=== PATIENT | female | born 1970 | race Caucasian/White ===

== ENCOUNTER 2016-07-23 01:07 | Emergency (ER) | payer BC, OTHER ==
[~2016-07-23] VITALS: Ht 165.1 cm; Wt 126.7 kg
[2016-07-23] MEDS ORDERED: AMLO5TAB2 PO (01:21)
[2016-07-23] MEDS ORDERED: METF500T PO (01:21)
[2016-07-23 01:22] VITALS: BP 145/89; PULSE 92; RESP 18; TEMP 97.9; O2SAT 100
--- NOTE | 2016-07-23 01:38 | PD ---
HPI Chief Complaint: Foreign Body Time Seen by Provider: 01:33 Travel History International Travel<30 days: No Contact w/Intl Traveler<30days: No Traveled to known affect area: No History of Present Illness HPI The patient is a 45-year-old female that was using a Q-tip in her right ear to scratch and itch there and the cotton part of the Q-tip broke off. This happened about 0030 this morning. PFSH Past Medical History Cardiovascular Problems: Yes Diabetes: Yes Patient Takes Glucophage: Yes Diminished Hearing: No Hypertension: Yes Tetanus Vaccination: Unknown Influenza Vaccination: No ?: Not LMP: 07/14/16 Social History Alcohol Use: No Tobacco Use: No Substance Use: No Allergies-Medications (Allergen,Severity, Reaction): Coded Allergies: Codeine (Verified Allergy, Mild, Nausea/Vomiting, 07/23/16) Reported Meds & Prescriptions Reported Meds & Active Scripts Active Reported Metformin (Metformin HCl) 500 Mg Tab 500 Mg PO DAILY With a meal Amlodipine (Amlodipine Besylate) 5 Mg Tab 5 Mg PO DAILY Review of Systems Except as stated in HPI: all other systems reviewed are Neg Physical Exam Narrative GENERAL: Well-nourished, well-developed patient in no apparent distress. The vital signs show a pulse of 92, blood pressure 145/89 but otherwise normal. SKIN: Warm and dry. HEAD: Normocephalic. EYES: No scleral icterus. No injection or drainage. NECK: Supple, trachea midline. No JVD or lymphadenopathy. CARDIOVASCULAR: Regular rate and rhythm without murmurs, gallops, or rubs. RESPIRATORY: Breath sounds equal bilaterally. No accessory muscle use. GASTROINTESTINAL: Abdomen soft, non-tender, nondistended. MUSCULOSKELETAL: No cyanosis, or edema. BACK: Nontender without obvious deformity. No CVA tenderness. ENT: The right canal is obscured by a cotton portion of the Q-tip which is deep in the right ear canal. Data Data Last Documented VS Vital Signs Date Time Temp Pulse Resp B/P Pulse Ox O2 Delivery O2 Flow Rate FiO2 07/23/16 01:25 18 07/23/16 01:22 97.9 92 145/89 100 MDM Medical Decision Making Medical Screen Exam Complete: Yes Emergency Medical Condition: Yes Medical Record Reviewed: Yes Differential Diagnosis Foreign body right ear canal, otitis externa, otitis media Narrative Course There is no evidence for an otitis externa or otitis media. There was a foreign body in the right ear canal that was removed without problem. Procedures Procedure Narrative Under direct visualization a cotton ball that broke off from a Q-tip was removed from the right ear canal. The patient tolerated the procedure well. Visualization of the tympanic membrane and the canal revealed no otitis externa or otitis media. Diagnosis Primary Impression: Acute foreign body of right ear canal Additional Instructions: It is good idea not to use Q-tips in the ear canal. Certainly do not use this brand of Q-tips in that fashion. Med/Other Pt SpecificInfo: No Change to Meds Disposition: 01 DISCHARGE HOME Condition: Stable Eloy Rich MD Jul 23, 2016 01:38
== END 2016-07-23 01:48 | disposition home or self-care (01) ==
LOC: PHED 01:07
DX: S00.451A Superficial foreign body of right ear, initial encounter (principal); E11.9 Type 2 diabetes mellitus without complications; I10 Essential (primary) hypertension; Z79.4 Long term (current) use of insulin
CPT/HCPCS: 99282